=== PATIENT | female | born 1970 ===

== ENCOUNTER 2020-04-07 06:00 | Day surgery (SDC) | payer OTHER ==
[2020-04-07] MEDS ORDERED: PERCOCET 5-3251 EACH PO (09:50)
[2020-04-07] MEDS ORDERED: RECTICARE30 GM TOP (09:51)
== END 2020-04-07 17:00 | disposition home or self-care (01) ==
LOC: CIR.AMB 06:00
PROVIDERS: ATTEND Surgery
DX: K64.8 Other hemorrhoids (principal); K64.1 Second degree hemorrhoids; Z20.828 Contact with and (suspected) exposure to other viral communicable diseases